=== PATIENT | male | born 1975 | race Caucasian/White ===

== ENCOUNTER 2018-03-22 09:51 | Emergency (ER) | payer SELFPAY ==
[2018-03-22 09:52] VITALS: BP 125/79; PULSE 78; RESP 17; TEMP 36.7; O2SAT 99; BMI 28.8
--- NOTE | 2018-03-22 09:58 | RAD_ITS ---
STUDY: X-RAY CHEST REASON FOR EXAM: Male, 42 years old. Coughing up blood TECHNIQUE: Frontal and lateral views of the chest. COMPARISON: 12/07/2004 FINDINGS: The lungs are clear and expanded. There is no demonstrated pleural abnormality. Normal size heart. Normal mediastinum and christianne. Normal visualized pulmonary arteries. Normal visualized aortic arch and descending thoracic aorta. Normal visualized thoracic spine. Normal visualized ribs, clavicles, and shoulders. There is no demonstrated abnormality of the visualized soft tissue structures of the upper abdomen. RAD/Chest PA and Lateral IMPRESSION: Normal x-ray examination of the chest. Electronically Signed: Kash uNr MD at 11:03 EST Tel , Service support ,
--- NOTE | 2018-03-22 10:00 | ED.DCSUM_ITS ---
- ER Visit Summary Date of Service: 03/22/18 Chief Complaint: Cough, hemoptysis History of Present Illness: The patient is a 42 M with no significant medical history presents with cough and hemoptysis. The patient states his been going on for 2 days. He states he has had a cough is been worse at night. He denies any shortness of breath. He denies any chest pain. He states he is a lot of coughing and that is noticed some slight blood in his sputum. Patient states that a month ago, he did have a CAT scan of his chest which showed some small nodules. He does smoke. He has no history of pulmonary embolus. He denies any history of cancer. He denies any fevers or chills. He denies night sweats or weight loss. He is not currently on any medications. Physical Examination: Vital signs reviewed General: Well-nourished, well-developed Head: Normocephalic, atraumatic Eyes: Pupils equal and reactive, extraocular muscles intact Neck, supple, no lymphadenopathy Heart: Regular rate and rhythm Respiratory: No distress, scant wheeze throughout Abdomen: Soft, nontender, nondistended, no peritoneal signs Back: Nontender Extremities: Nontender, no edema, no cords Skin: Normal color no rash Neuro: Alert and oriented, no focal or lateralizing deficits Test Results: [] Emergency Department Course and Treatment: My suspicion is that the patient's symptoms are likely infectious. He had cough with sputum and no hemoptysis. Is not short of breath. Is not hypoxic. Is not tachypneic. He has no chest pain. I do not feel that this represents pulmonary embolus. His chest x-ray does not show focal infiltrate, but given his progression of symptoms I am going to cover him for atypical pneumonia. He will be placed on prednisone, continue his inhaler, and started on azithromycin. Patient was counseled on concerning symptoms and reasons to return. He will be discharged home. Treatment Plan: [] Disposition: Discharge Impression: Infectious bronchitis with hemoptysis This note was generated with [employer] dictation software. It may contain incorrect words, spelling, and punctuation that were not noted in review of the chart prior to signing ED Disposition - Plan for ED Patient: Chief Complaint: Cough Instructions: ED Upper Resp Infec Abx Tx Prescriptions: Azithromycin [Zithromax Z-Misha] 250 mg PO UD #1 box Prednisone 10 mg PO UD #33 tab Referrals: NOT,DEFINED [NON-STAFF] -
[2018-03-22] MEDS: Ipratropium/Albuterol Sulfate 3 ML AMPUL.NEB INHALATION (10:21)
[2018-03-22 10:23] VITALS: PULSE 76; RESP 18
[2018-03-22] MEDS: predniSONE 20 MG Tablet 60 MG PO (10:45)
[2018-03-22 10:57] VITALS: BP 115/79; PULSE 70; RESP 16; O2SAT 95
== END 2018-03-22 10:58 | disposition home or self-care (01) ==
PROVIDERS: Emergency Provider Emergency Medicine
DX: J40 Bronchitis, not specified as acute or chronic (principal); R04.2 Hemoptysis; Z72.0 Tobacco use
CPT/HCPCS: 71046; 94640; 99283

== ENCOUNTER 2018-10-04 20:02 | Emergency (ER) | payer MEDICARE, MEDICAID, SELFPAY ==
[2018-10-04 20:03] VITALS: BP 109/64; PULSE 102; RESP 18; TEMP 37.2; O2SAT 95; BMI 28.5
--- NOTE | 2018-10-04 20:20 | ED.VISSUMM ---
- ER Visit Summary Date of Service: 10/04/18 Chief Complaint: Thigh abscess History of Present Illness: The patient is a 43 M states he had a left thigh abscess drained at urgent care yesterday. He states pus was expressed and a wick was placed. 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 However he states no prescription admitted to the pharmacy. He has a history of HIV but is not sure of the meds he is taking for that. He cannot tell me his last CD4 count or his viral load. He believes he is taking Bactrim prophylactically but is not sure. Physical Examination: Afebrile vital signs stable Gen: Well-nourished well-developed Head: Normocephalic atraumatic Eyes: Perrl EOMI ENT: TMs clear no rhinorrhea moist mucous membranes Neck: Supple no lymphadenopathy no JVD nontender CVS: Regular rate rhythm no murmurs normal S1-S2 Respiratory: No distress clear to auscultation bilaterally chest nontender Abdomen: Soft nontender nondistended normal bowel sounds no masses Back: Nontender Extremity: On the medial left thigh is a draining abscess. There is iodoform gauze packing in place. There is minimal surrounding erythema. Skin: Normal color no rash Neuro: alert orientated ?3 CN II-XII intact normal strength sensation reflexes gait cerebellar Psych: Normal affect normal mood Emergency Department Course and Treatment: Patient may be on Bactrim. Therefore we will write for doxycycline. He notes some pain I will write for short course of [place]. He is to follow-up with his doctors. He was encouraged to follow-up with his HIV doctor because he has not seen them in about 6 months. Impression: 1. Abscess of the left thigh This note was generated with [employer] dictation software. It may contain incorrect words, spelling, and punctuation that were not noted in review of the chart prior to signing ED Disposition - Plan for ED Patient: Disposition: Home or Assisted Living Instructions: ABSCESS, Incision and Drainage Prescriptions: Doxycycline 100 mg PO BID #20 cap Prescription Printed Hydrocodone Bitart/Apap 5-325 [[place] 5MG-325MG] 1 tab PO Q6H PRN PRN 3 Days #10 tab PRN Reason: Pain Prescription Printed Additional Instructions: Follow up with your doctor in 48 hours for packing removal and wound check
[2018-10-04] MEDS: Doxycycline 100 MG CAPSULE PO (20:38)
--- NOTE | 2018-10-04 21:16 | ED.RN ---
2045 wick cut to appropriate length and bandage applied.
== END 2018-10-04 20:57 | disposition home or self-care (01) ==
LOC: ED 20:48
PROVIDERS: Emergency Provider Emergency Medicine
DX: L02.416 Cutaneous abscess of left lower limb (principal); B20 Human immunodeficiency virus [HIV] disease; Z79.899 Other long term (current) drug therapy
CPT/HCPCS: 99283

== ENCOUNTER 2018-12-25 23:49 | Emergency (ER) | payer MEDICAID, SELFPAY ==
[2018-12-25 23:51] VITALS: BP 127/75; PULSE 111; RESP 16; TEMP 37; O2SAT 96; BMI 29.9
--- NOTE | 2018-12-26 01:18 | ED.RN ---
PT STATES HE DOESN'T WANT TO WAIT ANY MORE. PT ENCOURAGED TO STAY, THE PHYSICIAN JUST SIGNED UP FOR HIS CHART. PT LEFT WITH SIGNIFICANT OTHER
== END 2018-12-26 01:20 | disposition left against medical advice (07) ==
PROVIDERS: Emergency Provider Emergency Medicine
DX: Z53.21 Procedure and treatment not carried out due to patient leaving prior to being seen by health care provider (principal)

== ENCOUNTER 2018-12-26 11:22 | Emergency (ER) | payer SELFPAY ==
[2018-12-25 23:51] VITALS: BMI 29.9
[2018-12-26 11:22] VITALS: BP 112/77; PULSE 96; RESP 16; TEMP 37.3; O2SAT 97; BMI 29.6
--- NOTE | 2018-12-26 12:10 | ED.VIS.GEN ---
History of Present Illness Chief Complaint: Dental Detail of Chief Complaint: Dental pain Informant: Patient Onset: Yesterday Context: Gradual Onset Current Severity: Moderate Maximum Severity: Moderate Narrative: Right-sided dental pain that started yesterday. No recent injury. Patient states he is not able to see his dentist for 4 weeks. Past Medical History - Allergies and Home Meds Allergies/Adverse Reactions: Allergies Penicillins Allergy (Verified 12/26/18 11:24) Hives Primary Care Physician: Care Physician,No Primary [Primary Care Provider] - Prior records reviewed: Yes Past Medical History: - - Reviewed Lives: Spouse/ Significant Other Smoking Status: Current every day smoker Review of Systems General: Denies: Chills, Fever Eyes: Denies: Visual changes - bilaterally ENT: Denies: Bilateral ear pain Cardiovascular: Denies: Chest pain Respiratory: Denies: Dyspnea, Cough Gastrointestinal: Denies: Abdominal pain Skin: Denies: Rash Neurological: Denies: Headache Physical Exam Vital Signs/Narrative: Vital Signs Temp Pulse Resp BP Pulse Ox 12/26/18 11:22 99.1 F 96 16 112/77 97 Inital Vital Signs reviewed: Yes General: Well nourished, Well developed Head: Normocephalic ENT: Moist mucous membranes, - - Right second molar with cavity at base with surrounding gum edema. No trismus. Posterior pharynx examination is normal. Patient speaks with strong voice and is tolerating secretions well. Cardiovascular: Regular rate, Regular rhythm Respiratory: No distress, CTA bilaterally Abdomen: Soft, Nontender Skin: Normal color Neurological: Alert, Oriented x3 Psychological: Normal affect Diagnostic/Tx/Re-eval - Medical Decision Making Patient will be given a prescription for clindamycin as he does have a penicillin allergy. He will also be given naproxen. He is given a dental referral list to see if he can get an appointment sooner than 4 weeks out. ED Disposition - Plan for ED Patient: Disposition: Home or Assisted Living Instructions: Dental Abscess Prescriptions: Clindamycin [Cleocin] 300 mg PO 4X/DAY #80 capsule Naproxen [Naprosyn] 500 mg PO BID PRN PRN #20 tablet PRN Reason: Pain Score 1-10/10 Additional Instructions: Dental list provided
[2018-12-26] MEDS: Clindamycin HCl 150 MG Capsule 300 MG PO (12:21)
== END 2018-12-26 12:26 | disposition home or self-care (01) ==
PROVIDERS: Emergency Provider Emergency Medicine
DX: K02.9 Dental caries, unspecified (principal); F17.200 Nicotine dependence, unspecified, uncomplicated
CPT/HCPCS: 99282

== ENCOUNTER 2020-08-02 21:45 | Emergency (ER) | payer MEDICARE, MEDICAID, SELFPAY ==
[2020-08-02 21:45] VITALS: BP 121/81; PULSE 85; RESP 18; TEMP 36.8; O2SAT 96; BMI 27.1
--- NOTE | 2020-08-02 22:54 | EX.ED.DYSGE1 ---
HPI History of Present Illness Chief Complaint: Abscess Narrative Narrative: Patient stated he developed a abscess in his right groin fold 2 days ago. He was able to squeeze some small pus out but can no longer. He also has a small 1 in his left axilla. He has had abscesses in the past. Nothing recent. He does have a history of HIV. Denies taking any chronic antibiotics. Current severity is mild. No fevers or chills. These areas are small per patient. No surrounding cellulitis. PFSH PFS Medical History HIV disease Home Medications xqcwcek-tys-llqkn-tenof alafen [Genvoya] 1 tab PO DAILY 08/02/20 [History Last Taken Unknown] Allergy/AdvReac Type Severity Reaction Status Date / Time Penicillins Allergy Hives Verified 08/02/20 21:47 Social History Smoking Status: Current every day smoker ROS ROS ED ROS Narrative ROS General: Denies fever, chills, sweats Eyes: Denies visual changes, blurred vision, double vision ENT: Denies ear pain, rhinorrhea, sore throat Cardiovascular: Denies chest pain, palpitations, heart racing Respiratory: Denies dyspnea, cough, sputum, dyspnea on exertion, orthopnea,PND GI: Denies abdominal pain, nausea, vomiting, diarrhea, constipation, melena : Denies dysuria, hematuria, frequency Musculoskeletal: Denies myalgias, arthralgias, neck pain, back pain Skin: See HPI Neuro: Denies headache, weakness, paresthesia Psych: Denies depression, anxiety Endo: Denies polyuria, polydipsia, polyphagia Heme: Denies easy bruising, easy bleeding, lymphadenopathy Allergy: Denies hives, swelling EXAM Physical Exam Narrative Exam Narrative: Vital signs reviewed General: Well-nourished well-developed Head: Normocephalic atraumatic Eyes: Pupils equal round and reactive to light extraocular movements intact ENT: TMs clear no hemotympanum no trauma Neck: Nontender full range of motion Cardiovascular: Regular rate rhythm no murmurs normal S1-S2 Respiratory: No distress clear to auscultation bilaterally chest nontender Abdomen: Soft nontender nondistended normal bowel sounds no masses Back: Nontender no CVA tenderness Extremities: Nontender active range of motion ?4 extremities no trauma Skin: Left axilla has a 0.5 x 0.5 fluctuant abscess without surrounding redness. Right groin fold has a 1 x 1 cm fluctuant abscess without surrounding cellulitis. Neuro alert oriented cranial nerves II through XII intact normal strength sensation reflexes Const Vital Signs: 08/02/20 21:45 Temperature 98.2 F Temperature Source Temporal Pulse Rate 85 Respiratory Rate 18 Blood Pressure 121/81 H Blood Pressure Mean 94 Pulse Ox 96 Oxygen Delivery Method Room Air MDM MDM MDM Narrative Medical decision making narrative: Patient consented to incision and drainage of these 2 small abscess. Given ibuprofen for pain. Given oral Bactrim. Wounds were prepped with chlorhexidine. A total of 2 cc of lidocaine was injected into the right groin abscess for anesthesia. 1 cc of lidocaine was used in the left axillary abscess for anesthesia. 20 minutes later these were then cleaned again with chlorhexidine. An 11 blade was used to make a linear incision x like approximately half the diameter of the wound. There was pus that was drained from each abscess. These are too superficial to break up any loculations. They were washed with chlorhexidine and saline. Nursing dressed his wounds. He will follow-up as an outpatient Discharge Plan Triage Chief Complaint: Abscess ED Provider: Lázaro Valentin Dx/Rx/DC Orders Prescriptions: No Action Genvoya [phone] mg tablet 1 tab PO DAILY RF: 0 Primary Care Provider: Care Physician,Roxanne Primary
[2020-08-02] MEDS: Ibuprofen 600 MG Tablet PO (23:04)
[2020-08-02] MEDS: Smz/Tmp Ds Tablet 1 TABLET PO (23:04)
[2020-08-02] MEDS: Lidocaine 1% (20 ml mdv) 20 ML Vial INFILT (23:04)
[2020-08-02 23:51] VITALS: BP 119/82; PULSE 75; RESP 18; O2SAT 100
== END 2020-08-02 23:52 | disposition home or self-care (01) ==
PROVIDERS: Emergency Provider Emergency Medicine
DX: L02.214 Cutaneous abscess of groin (principal); B20 Human immunodeficiency virus [HIV] disease; Z79.899 Other long term (current) drug therapy; F17.200 Nicotine dependence, unspecified, uncomplicated
CPT/HCPCS: 10060; 99284

== ENCOUNTER 2022-03-16 10:59 | Emergency (ER) | payer MEDICARE, MEDICAID, SELFPAY ==
[2022-03-16 11:02] VITALS: BP 107/66; PULSE 88; RESP 18; TEMP 37.4; O2SAT 98; BMI 26.4
--- NOTE | 2022-03-16 12:14 | EX.ED.DYSGE1 ---
HPI History of Present Illness Chief Complaint: General Illness Informant: patient Onset/Context/Timing Onset: Days Context: Sudden Onset Timing: Continuous Quality: Weakness Location: Generalized Worsened by: Nothing Relieved by: Nothing Narrative Narrative: Patient presents with I am sick for the past 2 days. Patient states it began gradually. Patient states it has been getting progressively worse. Patient admits to subjective fevers. Patient did not take his temperature. Patient admits to a sore throat, cough with white sputum, nausea, vomiting, abdominal pain, and generalized hives. Patient denies any chest pain. Patient denies any urinary complaints. Patient states nothing makes his symptoms better and nothing makes them worse. Patient is HIV positive. Patient states his last CD4 and viral load counts were normal. Patient states these were 6 months ago. Patient states he does not take any medications at the present time. [facility] Medical History HIV disease Home Medications elviteg 150 mg-cob 150 mg-emtricit 200 mg-tenofo alafenam 10 mg tablet (Genvoya) 1 tab PO DAILY 08/02/20 [History Last Taken Unknown] sulfamethoxazole 800 mg-trimethoprim 160 mg tablet (Bactrim DS) 1 tab PO BID #7 tabs 08/02/20 [Rx Last Taken Unknown] prednisone 20 mg tablet 60 mg PO DAILY #15 TABLETS 03/16/22 [Rx Last Taken Unknown] Allergy/AdvReac Type Severity Reaction Status Date / Time Penicillins Allergy Hives Verified 08/02/20 21:47 Surgical History no surgical history no surgical history Social History Smoking Status: Current every day smoker tobacco type: cigarettes ROS ROS ED Constitutional Constitutional ED: Reports fever(s); Denies chills Eyes Eyes: Reports blurry vision; Denies diplopia ENT ENT ED: Reports sore throat; Denies rhinorrhea Cardiovascular Cardiovascular: Denies chest pain or palpitations Respiratory/Chest Respiratory/Chest: Reports cough; Denies dyspnea Gastrointestinal Gastrointestinal: Reports abdominal pain, nausea and vomiting Genitourinary Genitourinary ED: Denies dysuria or hematuria Musculoskeletal Musculoskeletal: Denies back pain or neck pain Integumentary Reports rash; Denies abscess Neurologic Neurologic: Denies headache(s) or weakness Allergic/Immunologic Allergic/Immunologic ED: Reports urticaria; Denies mouth swelling EXAM Physical Exam Const Vital Signs: 03/16/22 11:02 03/16/22 11:28 03/16/22 13:39 Temperature 99.3 F H Temperature Source Temporal Pulse Rate 88 85 Respiratory Rate 18 15 Respiratory Effort Normal Respiratory Pattern Normal Blood Pressure 107/66 102/66 Blood Pressure Mean 79 78 Pulse Ox 98 98 Oxygen Delivery Method Room Air Room Air 03/16/22 15:28 Temperature Temperature Source Pulse Rate 98 Respiratory Rate 15 Respiratory Effort Respiratory Pattern Blood Pressure 100/57 L Blood Pressure Mean 71 Pulse Ox 98 Oxygen Delivery Method Room Air Positive well nourished and well developed General Appearance ED: well developed and NAD HEENT Reports moist mucous membranes Neck supple and no JVD Resp normal respiratory effort and clear to auscultation bilaterally Cardio regular rate, regular rhythm and no murmurs GI normal to inspection, nondistended, normoactive bowel sounds and non-tender Palpation: soft Extremity normal to inspection General Extremety ED: Negative for edema or tenderness General Extremity: Negative for edema Neuro oriented x3, CN's II-XII intact bilaterally and no sensory deficits noted Sensorium / Orientation: alert Motor Exam: strength 5/5 throughout Psych mental status grossly normal Skin Rashes: rashes noted Generalized macule Generalized coalescing erythematous hives MDM MDM MDM Narrative Medical decision making narrative: Patient was given IV fluids and Benadryl here. CBC shows a white blood count of 2.9. Hemoglobin was 11.7 hematocrit 34.9. Platelets were 81. PT was INR and PTT were within normal limits. Comprehensive metabolic profile was essentially within normal limits. Lactate was normal. Troponin was normal. COVID-19 rapid antigen was obtained and was negative. Influenza A and influenza B rapid antigens were obtained and were negative. PA and lateral chest x-ray was obtained. There are 2 views. On my interpretation, lung zuleta are clear. There is normal cardiac silhouette. Bony thorax is normal. There is no acute process noted. Radiologist also interpreted the x-ray and agrees. Patient was advised of his findings. Patient is feeling somewhat better on reevaluation. Patient was given a prescription for prednisone for his urticaria. Patient was instructed to follow-up with his primary care physician in 5 to 7 days. Patient was instructed return if worse in any way. Patient understood and was agreeable with the plan. All questions were answered. Lab Data Attestation: I reviewed the patient's lab results. Labs: Laboratory Results - last 24 hr 03/16/22 03/16/22 03/16/22 12:28 12:28 12:28 WBC 2.9 L RBC 4.01 L Hgb 11.7 L Hct 34.9 L MCV 87.0 MCH 29.2 MCHC 33.5 RDW Std Deviation 42.3 RDW Coeff of Bernadette 13.2 Plt Count 81 L MPV 11.2 Immature Gran % (Auto) 0.300 Neut % (Auto) 87.2 H Lymph % (Auto) 8.0 L Traill % (Auto) 3.5 Eos % (Auto) 0.7 Baso % (Auto) 0.3 Absolute Neuts (auto) 2.5 Absolute Lymphs (auto) 0.23 L Nucleated RBC % 0 Differential Comment SCANNED Platelet Estimate SLT DEC PT 13.5 INR 1.1 APTT 26.8 Sodium 134 L Potassium 3.9 Chloride 102 Carbon Dioxide 25.0 Anion Gap 7 BUN 20 H Creatinine 1.34 H Estim Creat Clear Calc 76.19 Est GFR (MDRD) Af Amer 73 Est GFR (MDRD) Non-Af 60 BUN/Creatinine Ratio 14.9 Glucose 100 Lactic Acid Calcium 8.0 L Total Bilirubin 0.40 AST 24 ALT 22 Alkaline Phosphatase 60 Troponin I High Sens 8 Total Protein 8.2 Albumin 3.2 Globulin 5.0 H Albumin/Globulin Ratio 0.6 L 03/16/22 12:28 WBC RBC Hgb Hct MCV MCH MCHC RDW Std Deviation RDW Coeff of Bernadette Plt Count MPV Immature Gran % (Auto) Neut % (Auto) Lymph % (Auto) Traill % (Auto) Eos % (Auto) Baso % (Auto) Absolute Neuts (auto) Absolute Lymphs (auto) Nucleated RBC % Differential Comment Platelet Estimate PT INR APTT Sodium Potassium Chloride Carbon Dioxide Anion Gap BUN Creatinine Estim Creat Clear Calc Est GFR (MDRD) Af Amer Est GFR (MDRD) Non-Af BUN/Creatinine Ratio Glucose Lactic Acid 1.0 Calcium Total Bilirubin AST ALT Alkaline Phosphatase Troponin I High Sens Total Protein Albumin Globulin Albumin/Globulin Ratio Radiography Chest X-Ray - ED: 2 View, Read by ED Physician, Read by Radiologist and No Acute Disease Diagnostic Testing: Clinical Impression(s) from Imaging Studies Chest X-Ray 03/16/22 12:18 IMPRESSION: No acute abnormality is seen. Electronically Signed: Jaguar Fontana MD at 13:08 EST , Discharge Plan Triage Chief Complaint: General Illness ED Provider: Jose Vance Dx/Rx/DC Orders Clinical Impression: Viral illness, Urticaria Instructions: ED Hives (Adult), ED Viral Syndrome (Adult) Prescriptions: New prednisone 20 mg tablet 60 mg PO DAILY Qty: 15 0RF No Action Genvoya [phone] mg tablet 1 tab PO DAILY sulfamethoxazole-trimethoprim [Bactrim DS] 800-160 mg tablet 1 tab PO BID Qty: 7 0RF Primary Care Provider: Care Physician,No Primary Referrals: Cheryl Verdin [Non-Staff] - 5-7 Days Care Physician,No Primary [Primary Care Provider] - 5-7 Days Disposition Disposition: Home, Self Care
--- NOTE | 2022-03-16 12:18 | RAD_ITS ---
STUDY: X-RAY CHEST REASON FOR EXAM: Male, 46 years old. Cough TECHNIQUE: PA and lateral views of the chest. COMPARISON: Comparison is made with prior study dated 03/22/2018. FINDINGS: EKG electrode are seen. The lungs are clear and expanded. There is no demonstrated pleural abnormality. Normal size heart. Calcified bilateral hilar lymph nodes. Scattered calcified granulomas. Normal visualized pulmonary arteries. Normal visualized aortic arch and descending thoracic aorta. Normal visualized thoracic spine. Normal visualized ribs, clavicles, and shoulders. There is no demonstrated abnormality of the visualized soft tissue structures of the upper abdomen. RAD/Chest PA and Lateral IMPRESSION: No acute abnormality is seen. Electronically Signed: Jaguar Fontana MD at 13:08 EST ,
[2022-03-16 12:50] LABS: Absolute Lymphocyte Count 0.23 X10^3/uL (0.83-4.51); Absolute Neutrophil Count 2.5 X10^3/uL (2.0-7.7); Basophil# 0.01 X10^3/uL; Basophil% 0.3 % (0-1); Eosinophil# 0.02 X10^3/uL; Eosinophils% 0.7 % (0-5); Hematocrit 34.9 % (40-54); Hemoglobin 11.7 g/dL (13.0-16.5); Lymphocyte # 0.23 X10^3/ul (0.83-4.51); Mean Corp Hgb Conc 33.5 g/dL (32-36); Mean Corpuscular Hgb 29.2 pg (27.0-32.0); Mean Platelet Vol. 11.2 fl (6.2-12.0); Monocyte% 3.5 % (0-10); NRBC Flagged by Analyzer 0 % (0-5); Neutrophil # 2.52 X10^3/uL (2.7-7.7); Neutrophil % 87.2 % (47-70); POSITIVE COUNT YES; POSITIVE DIFFERENTIAL YES; POSITIVE MORPHOLOGY YES; Platelet Count 81 K/mm3 (150-450); RBC Distribution Width CV 13.2 % (11.6-14.6); RBC Distribution Width SD 42.3 fl (35.1-43.9); Red Blood Count 4.01 M/mm3 (4.6-6.2); White Blood Count 2.9 K/mm3 (4.4-11.0)
[2022-03-16 12:52] LABS: Differential Indicated SCAN CRITERIA MET
[2022-03-16 13:05] LABS: International Normalized Ratio 1.1; Prothrombin Time (Protime)PT. 13.5 SECONDS (11.7-14.9)
[2022-03-16 13:06] LABS: Partial Thromboplast Time 26.8 Seconds (24.1-36.2)
[2022-03-16 13:09] LABS: ALB/GLOB Ratio 0.6 RATIO (0.9-2.4); AST(SGOT) 24 U/L (15-37); Alanine Aminotransfer ALT/SGPT 22 U/L (16-61); Albumin, Serum 3.2 g/dL (3.2-5.0); Alkaline Phosphatase 60 U/L (45-117); Anion Gap 7 (5-15); BUN 20 mg/dL (7-18); BUN/Creat Ratio 14.9 RATIO (10-20); Chloride 102 mmol/L (98-107); Creatinine, Serum 1.34 mg/dL (0.70-1.30); EST Glomerular Filtration Rate 60 mL/min (>60); Est Glom Filt Rate - Afr Amer 73 mL/min (>60); Estimated Creatinine Clearance 76.19 ml/min; Glucose 100 mg/dL (74-106); Potassium 3.9 mmol/L (3.5-5.1); Protein, Total 8.2 g/dL (6.4-8.2); Sodium Level 134 mmol/L (136-145); Troponin-I HS 8 pg/mL (3.0-78.0)
[2022-03-16] MEDS: DiphenhydrAMINE 50 MG/ML Syringe 25 MG IV (13:09)
[2022-03-16] MEDS: 0.9% Normal Saline 1,000 ML 1000 ML IV (13:09)
[2022-03-16 13:14] LABS: Differential Comment SCANNED; Platelet Estimate SLT DEC (ADEQ)
[2022-03-16 13:39] VITALS: BP 102/66; PULSE 85; RESP 15; O2SAT 98
--- NOTE | 2022-03-16 13:39 | ED.RN ---
covid isolation discontinued after discussion with . negative covid and flu swab. jose alberto al rn [id number]
[2022-03-16 15:28] VITALS: BP 100/57; PULSE 98; RESP 15; O2SAT 98
[2022-03-16 16:06] LABS: Mucous, Urine 0 SEEN /hpf (<or=2+); Squamous Epithelial Cells - UA 0 SEEN /hpf (0-5)
[2022-03-16 16:16] LABS: Glucose, Dipstick Normal (Normal); Ketone-Dipstick 5 mg/dl (Negative); Leukocyte Esterase-Dipstick 25 /ul (Negative); Nitrite-Dipstick Negative (Negative); Occult Blood-Urine Negative /ul (Negative); Protein-Dipstick Negative (Negative); Urine Bilirubin Dipstick Negative (Negative); Urine Urobilinogen Normal (Normal)
[2022-03-16 16:37] LABS: Color, Urine Yellow (Yellow); Urine Clarity Clear (Clear)
[2022-03-16 17:10] LABS: Red Blood Cells-Urine 0 SEEN /hpf (0-5); White Blood Cells 0-5 SEEN /hpf (0-5)
[2022-03-16 17:11] LABS: Bacteria RARE /hpf (None Seen); Hyaline Cast 0-5 SEEN /lpf (0-5)
[2022-03-18 14:25] LABS: Pathologist Review Reviewed
== END 2022-03-16 16:13 | disposition home or self-care (01) ==
PROVIDERS: Emergency Provider Emergency Medicine; Visit Provider Emergency Medicine
DX: B34.9 Viral infection, unspecified (principal); Z21 Asymptomatic human immunodeficiency virus [HIV] infection status; L50.9 Urticaria, unspecified; R11.2 Nausea with vomiting, unspecified; R10.9 Unspecified abdominal pain; F17.210 Nicotine dependence, cigarettes, uncomplicated
CPT/HCPCS: 71046; 80053; 81001; 83605; 84484; 85025; 85610; 85730; 87040; 87428; 96361; 96374; 99285; J7030; A4216